=== PATIENT | male | born 1965 | race Caucasian/White ===

== ENCOUNTER 2024-10-17 11:17 | Emergency (ER) | payer MEDICAID, SELFPAY ==
--- NOTE | 2024-10-17 12:07 | XR_ITS ---
WS: [id number] XR foot LT min 3V* [id number] REASON FOR EXAM: infection FINDINGS: No acute fracture or focal bone lesion. No periosteal reaction. No bone erosion. Significant valgus subluxation of the first MTP joint with significant narrowing of the joint space, subchondral sclerosis, and osteophytosis. There is erosion of the sesamoids by the distal head of the first metatarsal. The remainder of the joint spaces in the forefoot are intact and relatively well preserved. Joint spa rebecca in the midfoot and hindfoot are intact and relatively well preserved. No radiopaque foreign body or gas is seen in the soft tissues of the foot. XR/XR foot LT min 3V* [id number] IMPRESSION: Hallux valgus with significant osteoarthritis. No acute abnormality is identifi ed.
[2024-10-17 12:11] VITALS: BP 159/91; PULSE 80; RESP 17; TEMP 36.6; O2SAT 97; BMI 34.2
[2024-10-17 13:24] LABS: Basophils # 0.1 10^3/uL (0.0-0.1); Basophils % 0.8 %; Eosinophils # 0.2 10^3/uL (0.0-0.8); Eosinophils % 2.3 %; Hematocrit 48.9 % (37-53); Lymphocytes # 1.9 10^3/uL (0.8-4.8); Lymphocytes % 18.2 %; Mean Corpuscular HGB Conc 32.5 g/dL (30-55); Mean Corpuscular Hemoglobin 27.8 pg (27-33); Mean Corpuscular Volume 85.5 fl (82-101); Mean Platelet Volume 9.6 fL (7.4-10.4); Monocytes # 0.6 10^3/uL (0.2-0.9); Neutrophils # 7.42 10^3/uL (1.8-7.7); Neutrophils % 71.8 %; Nucleated Red Blood Cells % 0 %; Platelet Count 197 10^3/cmm (157-399); Red Blood Count 5.72 10^6/uL (3.85-5.65); Red Cell Distribution Width 12.6 % (12.1-15.1); White Blood Count 10.33 10^3/uL (3.29-11.43)
[2024-10-17 13:39] LABS: Erythrocyte Sedimentation Rate 6 mm/hr (0-10)
[2024-10-17 13:42] LABS: Lactic Sepsis W/Reflex 1.1 mmol/L (0.5-2.2)
[2024-10-17 13:44] LABS: Alanine Aminotransferase 11 U/L (0-41); Alkaline Phosphatase 151 U/L (40-130); Anion Gap 15.6 (5-19); Aspartate Amino Transferase 15 U/L (0-40); Blood Urea Nitrogen 24 mg/dL (8-23); C Reactive Protein 8.4 mg/L (0.0-4.9); Calcium 9.4 mg/dL (8.5-10.5); Carbon Dioxide 27 mmol/L (22-29); Chloride 102 mmol/L (98-107); Creatinine Clr Calc Pharmacy 122.9328; Globulin 3.8 g/dL (1.3-4.6); Glomerular Filtration Rate 98.3 mL/min (90-130); Glucose 96 mg/dL (65-115); Osmolality Calculated 294 mOsm/kg (285-295); Potassium 4.6 mmol/L (3.5-5.1); Sodium 140 mmol/L (136-145); Total Bilirubin 0.3 mg/dL (0.15-1.2); Total Protein 7.8 g/dL (6.6-8.7)
--- NOTE | 2024-10-17 15:41 | W.ED.SKABFB ---
HPI - Skin/Abscess/Foreign Bdy General: Chief complaint: Wound/Laceration Stated complaint: L foot infection Time Seen by Provider: 10/17/24 15:28 Source: patient Mode of arrival: EMS Limitations: no limitations History of Present Illness: Patient is a 59-year-old male who presents to ED today from [facility] for evaluation of a rash/skin wounds involving his left foot. Patient states they have been present over the past 3 weeks. He has been receiving local wound care at [facility]. Patient states he completed a 7-day course of oral Diflucan after that provider thought this could be fungal. Patient states they did obtain cultures yesterday and they are awaiting these results. He states he has not been on any form of oral antibiotic. They are treating with topical mupirocin. He is not running fevers. He has not noticed any streaking up his leg. complaint: rash Onset (ago): week(s) Tetanus up to date: yes Location: L foot Severity: moderate Relieving factors: none Exacerbating factors: none Context: none Associated symptoms: Reports no associated symptoms; Deny chills or fever(s) Treatments prior to arrival: none Related Data Previous Rx's Medication Instructions Recorded clindamycin HCl 300 mg capsule 300 mg PO Q6H 7 days #28 caps 10/17/24 Allergies Allergy/AdvReac Type Severity Reaction Status Date / Time No Known Allergies Allergy Verified 10/17/24 12:14 Review of Systems Const: Denies: fever(s), chills, body aches, fatigue or malaise Musc: Reports: extremity pain (L foot) Skin/Breast: Reports: rash and erythema Neuro: Denies: numbness in extremities, weakness in extremities or sensory changes Physical Exam Const: COMMON NORMALS: no acute distress, average body habitus, no limitations, healthy appearing, alert and well nourished Resp: COMMON NORMALS: normal respiratory effort and clear to auscultation bilaterally AUSCULTATION: clear to auscultation bilaterally Cardio: COMMON NORMALS: regular rate and regular rhythm RATE: regular rate RHYTHM: regular rhythm Extremity: COMMON NORMALS: capillary refill normal and no calf tenderness GENERAL: Yes normal exam except as noted LEFT LOWER EXTREMITY: Yes foot & digits Left foot and digits: Yes neurovascular exam (normal) OTHER: Patient has a skin dermatitis involving his left foot. Dermatitis consisting of scabbed lesions as well as erythematous ulcerative areas. He has multiple pustular formations to the plantar aspect of the foot. One small area of slough. Overlying caking powder from wound care. There is no drainable abscess formation. He does not have any significant erythema or warmth. No lymphangitic streaking. No significant odor. Neuro: COMMON NORMALS: moves all extremities, no focal motor deficits and no sensory deficits noted SENSORIUM/ORIENTATION: Yes alert Course Vital Signs: Vital signs: Vital Signs Temperature 97.9 F 10/17/24 12:11 Pulse Rate 80 10/17/24 12:11 Respiratory Rate 17 10/17/24 12:11 Blood Pressure 159/91 10/17/24 12:11 Pulse Oximetry 97 10/17/24 12:11 Oxygen Delivery Me thod Room Air 10/17/24 12:11 MDM - Skin/Abscess/Foreign Bdy Medicial Decision Making Patient here with a dermatitis involving the left foot that has been present over the past 3 weeks. Upon arrival, he clinically appears in no acute distress. He is not tachycardic or febrile. He has a normal white count. His lactic is normal. His CRP is scantly elevated at 8.4. Remainder of blood work is unremarkable. He is CXR showing no acute abnormalities. At this time, from an emergency standpoint, he is stable for discharge. He does note he has not been on any form of oral antibiotics. I would cover him with Clindamycin. He does mention recent cultures being obtained from the lesions and they are awaiting results at this time. I will have him follow-up with our podiatry team for further evaluation/treatment as lesions/wounds do not seem to be healing with appropriate wound care through [facility]. Return precautions discussed. Medical Records I reviewed the patient's medical records. Lab Data I reviewed the patient's lab results. 10/17/24 12:53 10/17/24 12:53 Radiology Impressions Foot X-Ray 10/17/24 12:07 IMPRESSION: Hallux valgus with significant osteoarthritis. No acute abnormality is identified. Laboratory Results WBC 10.33 10^3/uL (3.29-11.43) 10/17/24 12:53 RBC 5.72 10^6/uL (3.85-5.65) H 10/17/24 12:53 Hgb 15.90 g/dL (11.27-16.99) 10/17/24 12:53 Hct 48.9 % (37-53) 10/17/24 12:53 MCV 85.5 fl (82-101) 10/17/24 12:53 MCH 27.8 pg (27-33) 10/17/24 12:53 MCHC 32.5 g/dL (30-55) 10/17/24 12:53 RDW 12.6 % (12.1-15.1) 10/17/24 12:53 Plt Count 197 10^3/cmm (157-399) 10/17/24 12:53 MPV 9.6 fL (7.4-10.4) 10/17/24 12:53 Neut % (Auto) 71.8 % 10/17/24 12:53 Lymph % (Auto) 18.2 % 10/17/24 12:53 [place] % (Auto) 6.0 % 10/17/24 12:53 Eos % (Auto) 2.3 % 10/17/24 12:53 Baso % (Auto) 0.8 % 10/17/24 12:53 Neut # (Auto) 7.42 10^3/uL (1.8-7.7) 10/17/24 12:53 Lymph # (Auto) 1.9 10^3/uL (0.8-4.8) 10/17/24 12:53 [place] # (Auto) 0.6 10^3/uL (0.2-0.9) 10/17/24 12:53 Eos # (Auto) 0.2 10^3/uL (0.0-0.8) 10/17/24 12:53 Baso # (Auto) 0.1 10^3/uL (0.0-0.1) 10/17/24 12:53 Nucleated RBC % (auto) 0 % 10/17/24 12:53 Nucleated RBCs # 0.0 /100WBC 10/17/24 12:53 ESR 6 mm/hr (0-10) 10/17/24 12:53 Sodium 140 mmol/L (136-145) 10/17/24 12:53 Potassium 4.6 mmol/L (3.5-5.1) 10/17/24 12:53 Chloride 102 mmol/L (98-107) 10/17/24 12:53 Carbon Dioxide 27 mmol/L (22-29) 10/17/24 12:53 Anion Gap 15.6 (5-19) 10/17/24 12:53 BUN 24 mg/dL (8-23) H 10/17/24 12:53 Creatinine 0.8 mg/dL (0.7-1.2) 10/17/24 12:53 GFR Calculation 98.3 mL/min (90-130) 10/17/24 12:53 Glucose 96 mg/dL (65-115) 10/17/24 12:53 Calculated Osmolality 294 mOsm/kg (285-295) 10/17/24 12:53 Lactic Acid 1.1 mmol/L (0.5-2.2) 10/17/24 12:53 Calcium 9.4 mg/dL (8.5-10.5) 10/17/24 12:53 Total Bilirubin 0.3 mg/dL (0.15-1.2) 10/17/24 12:53 AST 15 U/L (0-40) 10/17/24 12:53 ALT 11 U/L (0-41) 10/17/24 12:53 Alkaline Phosphatase 151 U/L (40-130) H 10/17/24 12:53 C-Reactive Protein 8.4 mg/L (0.0-4.9) H 10/17/24 12:53 Total Protein 7.8 g/dL (6.6-8.7) 10/17/24 12:53 Albumin 4.0 g/dL (3.5-5.2) 10/17/24 12:53 Globulin 3.8 g/dL (1.3-4.6) 10/17/24 12:53 All radiology interpretation(s) finalized by discharge Discharge Plan Discharge Patient Disposition: Home Clinical Impression: Dermatitis of left foot Condition: Stable Prescriptions: New clindamycin HCl 300 mg capsule 300 mg PO Q6H 7 Days Qty: 28 0RF Discharge Orders: Discharge ED (Routine); Ordered 10/17/24 Ordered By: Jennie Babin Activity Restrictions/Additional Instructions: As we discussed, we will place you on oral antibiotics as we await results of the culture that was obtained recently. We have case management set you up to see our podiatry specialist for further evaluation and care. 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
[2024-10-17 16:45] VITALS: BP 132/99; PULSE 60; O2SAT 96
--- NOTE | 2024-10-20 08:27 | DCPLANNER ---
Message sent to Podiatry for follow up
== END 2024-10-17 17:00 | disposition home or self-care (01) ==
PROVIDERS: Emergency Medicine; Emergency Provider Physician Assistant
DX: L30.9 Dermatitis, unspecified (principal)
CPT/HCPCS: 36415; 73630; 80053; 83605; 85025; 85651; 86140; 87040; 99284